=== PATIENT | female | born 1965 | race African-American/Black ===

== ENCOUNTER 2021-08-13 19:03 | Emergency (ER) | payer BC, OTHER ==
[2021-08-13 19:22] VITALS: PULSE 92; TEMP 98.3; BMI 33.0
[2021-08-13] MEDS ORDERED: ASPIRIN 81 MG CHEWABLE TABLETS PO ONE (21:50)
[2021-08-13] MEDS ORDERED: ASPIRIN 81 MG CHEWABLE TABLETS ONE (22:17)
[2021-08-13 22:50] LABS: BASO % 0.2 % (0-2.0); EOS % 0.2 % (0-4.5); HEMATOCRIT 38.5 % (32.4-45.2); HEMOGLOBIN 12.6 GM/dL (10.7-15.3); LYMPH % 24.2 % (8-40); MCH 26.7 pg (25.7-33.7); MCHC 32.6 g/dl (32.0-36.0); MEAN CELL VOLUME 81.7 fl (80-96); MEAN PLT VOLUME 8.4 fl (7.5-11.1); MONO % 4.7 % (3.8-10.2); NEUT % 70.7 % (42.8-82.8); PLATELET COUNT 239 10^3/uL (134-434); RBC 4.71 M/mm3 (3.60-5.2); RDW 13.9 % (11.6-15.6); WHITE BLOOD COUNT 5.7 K/mm3 (4.0-10.0)
[2021-08-13 22:56] LABS: INR 1.06 (0.83-1.09); PROTHROMBIN TIME (PATIENT) 12.2 SEC (9.7-13.0)
[2021-08-13 22:59] LABS: ACTIVATED PTT 32.7 SECONDS (25.2-36.5)
[2021-08-13 23:14] LABS: CALCIUM 9.8 mg/dL (8.5-10.1)
[2021-08-13 23:15] LABS: BLOOD UREA NITROGEN 9.2 mg/dL (7-18)
[2021-08-13 23:17] LABS: CREATININE 0.7 mg/dL (0.55-1.3)
[2021-08-13 23:19] LABS: BILIRUBIN,TOTAL 0.5 mg/dL (0.2-1); TOT PROT 7.8 g/dl (6.4-8.2)
[2021-08-14 00:37] VITALS: BP 165/96
== END 2021-08-14 01:55 | disposition home or self-care (01) ==
LOC: JER 19:03
DX: R07.9 Chest pain, unspecified (principal)
CPT/HCPCS: 36415; 71045-TC-FY; 80053; 84484; 85025; 85610; 85730; 86850; 86900; 86901; 93005; 93010; 99284-25